=== PATIENT | male | born 1940 | race Caucasian/White ===

== ENCOUNTER → 2016-12-22 | Outpatient (CLI) | payer MEDICARE ==
[~2016-12-22] MED LIST: ACET65TA OR; AVAP150T OR; FISHCAP PO; GLUC500T3 OR; PRIL40CA OR; THERGRAN PO; VITAMIN D50000 UNT OR
--- NOTE | 2016-12-22 13:25 | REP ---
Urinary tract sonography: History: Hematuria after injury. Comparison is made with CT study from December 22, 2015. Findings: Scanning at the level of the urinary bladder shows smooth bladder hood. The prostate is enlarged measuring 5.7 x 4.3 x 5.6 cm. Renal cortical echogenicity pattern is normal and contours are smooth. No hydronephrosis is seen on either side. The right kidney measures 10.4 x 5.0 x 4.8 cm. Left renal dimensions are 11.0 x 4.5 x 5.3 cm. There is a dromedary hump configuration of the left kidney. No renal mass lesion. No renal or perirenal hematoma is appreciated. Impression: Enlarged prostate. Otherwise negative urinary tract sonography. Signed by Reid Diaz MD 12/22/2016 04:25 P
== END ==
LOC: M RAD 11:06
PROVIDERS: ATTEND Surgery
DX: R31.9 Hematuria, unspecified (principal)

== ENCOUNTER → 2017-07-24 | Outpatient (CLI) | payer MEDICARE ==
[2017-07-24 07:30] LABS: BASO % 0.5 % (0.0-1.0); EOS # 0.3 10^3/uL (0.0-0.50); EOS % 4.1 % (0.0-3.0); HEMATOCRIT 48.3 % (42.0-52.0); HEMOGLOBIN 15.9 g/dl (14.0-18.0); IMMATURE GRANULOCYTE % 0.5 % (0-0); LYMPH # 1.6 10^3/uL (1.5-4.5); LYMPH % 21.5 % (24.0-44.0); MEAN CORPUSCULAR HEMOGLOBIN 31.7 pg (27.0-33.0); MEAN CORPUSCULAR HGB CONC 32.9 g/dl (32.0-36.5); MEAN CORPUSCULAR VOLUME 96.2 fl (80.0-96.0); MONO # 0.9 10^3/uL (0.0-0.8); MONO % 12.4 % (0.0-5.0); NEUTROPHILS # 4.6 10^3/uL (1.8-7.7); PLATELET COUNT, AUTOMATED 134 10^3/uL (150-450); RED BLOOD COUNT 5.02 10^6/uL (4.30-6.10); RED CELL DISTRIBUTION WIDTH 13.2 % (11.5-14.5); WHITE BLOOD COUNT 7.5 10^3/uL (4.0-10.0)
[2017-07-24 07:52] LABS: ALBUMIN 3.7 GM/DL (3.2-5.2); ALBUMIN/GLOBULIN RATIO 0.95 (1.00-1.93); ALKALINE PHOSPHATASE 98 U/L (45-117); ALT/SGPT 23 U/L (12-78); ANION GAP 7 MEQ/L (8-16); AST/SGOT 27 U/L (7-37); BILIRUBIN,TOTAL 0.7 MG/DL (0.2-1.0); BLOOD UREA NITROGEN 29 MG/DL (7-18); CALCIUM LEVEL 8.2 MG/DL (8.8-10.2); CARBON DIOXIDE LEVEL 27 MEQ/L (21-32); CHLORIDE LEVEL 107 MEQ/L (98-107); CHOLESTEROL LEVEL 134 MG/DL (<200); CHOLESTEROL RISK RATIO 3.268 (<5); CREATININE FOR GFR 1.64 MG/DL (0.70-1.30); GLOMERULAR FILTRATION RATE 43.5 (>42); GLUCOSE, FASTING 97 MG/DL (83-110); HDL CHOLESTEROL 41 MG/DL (>40); NON-HDL-C 93 MG/DL; POTASSIUM SERUM 4.6 MEQ/L (3.5-5.1); SODIUM LEVEL 141 MEQ/L (136-145); TOTAL PROTEIN 7.6 GM/DL (6.4-8.2); TRIGLYCERIDES LEVEL 90 MG/DL (<150)
[2017-07-24 08:11] LABS: TOTAL 25(OH) VITAMIN D 41.3 NG/ML (30.0-100.0); VITAMIN B12 LEVEL 405 PG/ML (247-911)
== END ==
LOC: M LAB 06:17
DX: E55.9 Vitamin D deficiency, unspecified (principal); I10 Essential (primary) hypertension; E53.8 Deficiency of other specified B group vitamins
CPT/HCPCS: 82607

== ENCOUNTER → 2017-12-03 | Outpatient (CLI) | payer MEDICARE ==
[2017-12-03 07:32] LABS: ANION GAP 5 MEQ/L (8-16); BLOOD UREA NITROGEN 32 MG/DL (7-18); CALCIUM LEVEL 8.6 MG/DL (8.8-10.2); CARBON DIOXIDE LEVEL 28 MEQ/L (21-32); CHLORIDE LEVEL 111 MEQ/L (98-107); CREATININE FOR GFR 1.76 MG/DL (0.70-1.30); GLOMERULAR FILTRATION RATE 40.1 (>42); GLUCOSE, FASTING 100 MG/DL (70-100); POTASSIUM SERUM 4.6 MEQ/L (3.5-5.1); SODIUM LEVEL 144 MEQ/L (136-145)
== END ==
LOC: M LAB 06:10
DX: N18.9 Chronic kidney disease, unspecified (principal)
CPT/HCPCS: 80048

== ENCOUNTER → 2017-12-21 | Outpatient (REF) | payer MEDICARE ==
[2017-12-21 13:50] LABS: TOTAL PROTEIN,RANDOM URINE 17.2 MG/DL (0.0-12.0)
== END ==
LOC: M LAB REF 12:59
DX: N18.3 Chronic kidney disease, stage 3 (moderate) (principal)
CPT/HCPCS: 84156

== ENCOUNTER → 2017-12-27 | Outpatient (CLI) | payer MEDICARE | LOC: M RAD 06:59 | DX: I15.0 Renovascular hypertension (principal); N18.9 Chronic kidney disease, unspecified | CPT/HCPCS: 76775 ==

== ENCOUNTER → 2018-04-22 | Outpatient (REF) | payer MEDICARE ==
[2018-04-22 14:10] LABS: TOTAL PROTEIN,RANDOM URINE 17.5 MG/DL (0.0-12.0)
== END ==
LOC: M LAB REF 13:19
DX: N18.3 Chronic kidney disease, stage 3 (moderate) (principal)
CPT/HCPCS: 84156

== ENCOUNTER → 2018-12-10 | Outpatient (REF) | payer MEDICARE ==
[2018-12-10 20:37] LABS: BASO # 0.1 10^3/uL (0.0-0.2); BASO % 0.8 % (0.0-1.0); EOS # 0.2 10^3/uL (0.0-0.50); EOS % 2.6 % (0.0-3.0); HEMATOCRIT 50.3 % (42.0-52.0); HEMOGLOBIN 16.2 g/dl (13.5-17.5); LYMPH # 1.5 10^3/uL (1.5-4.5); LYMPH % 18.6 % (24.0-44.0); MEAN CORPUSCULAR HEMOGLOBIN 32.4 pg (27.0-33.0); MEAN CORPUSCULAR HGB CONC 32.2 g/dl (32.0-36.5); MEAN CORPUSCULAR VOLUME 100.6 fl (80.0-96.0); MONO # 0.9 10^3/uL (0.0-0.8); MONO % 11.1 % (0.0-5.0); NEUTROPHILS # 5.2 10^3/uL (1.8-7.7); NEUTROPHILS % 66.4 % (36.0-66.0); PLATELET COUNT, AUTOMATED 122 10^3/uL (150-450); WHITE BLOOD COUNT 7.8 10^3/uL (4.0-10.0)
== END ==
LOC: M LAB REF 17:20
PROVIDERS: ATTEND Internal Medicine Nephrology
DX: I12.9 Hypertensive chronic kidney disease with stage 1 through stage 4 chronic kidney disease, or unspecified chronic kidney disease (principal); N18.3 Chronic kidney disease, stage 3 (moderate)

== ENCOUNTER → 2018-12-12 | Outpatient (CLI) | payer MEDICARE ==
[2018-12-12 07:02] LABS: CHOLESTEROL RISK RATIO 3.304 (<5)
[2018-12-12 10:37] LABS: TOTAL 25(OH) VITAMIN D 40.3 NG/ML (30.0-100.0)
== END ==
LOC: M LAB 06:05
PROVIDERS: ATTEND Family Medicine
DX: E55.9 Vitamin D deficiency, unspecified (principal); I10 Essential (primary) hypertension; E53.8 Deficiency of other specified B group vitamins; Z79.899 Other long term (current) drug therapy

== ENCOUNTER → 2019-12-19 | Outpatient (CLI) | payer MEDICARE ==
[2019-12-19 10:20] LABS: HEMATOCRIT 49.7 % (42.0-52.0); HEMOGLOBIN 16.3 g/dl (13.5-17.5); MEAN CORPUSCULAR HEMOGLOBIN 31.8 pg (27.0-33.0); MEAN CORPUSCULAR HGB CONC 32.8 g/dl (32.0-36.5); MEAN CORPUSCULAR VOLUME 96.9 fl (80.0-96.0); PLATELET COUNT, AUTOMATED 116 10^3/uL (150-450); RED BLOOD COUNT 5.13 10^6/uL (4.30-6.10); WHITE BLOOD COUNT 8.7 10^3/uL (4.0-10.0)
[2019-12-19 10:54] LABS: ALBUMIN 3.8 GM/DL (3.2-5.2); BILIRUBIN,TOTAL 0.6 MG/DL (0.2-1.0); CALCIUM LEVEL 8.8 MG/DL (8.8-10.2); CHOLESTEROL RISK RATIO 3.191 (<5); CREATININE FOR GFR 1.94 MG/DL (0.70-1.30); GLOMERULAR FILTRATION RATE 35.5 (>35)
== END ==
LOC: M WUC 08:06
PROVIDERS: ATTEND Family Medicine
DX: E55.9 Vitamin D deficiency, unspecified (principal); I10 Essential (primary) hypertension; E53.8 Deficiency of other specified B group vitamins

== ENCOUNTER → 2021-08-18 | Outpatient (CLI) | payer MEDICARE | LOC: M WUC 13:54 | PROVIDERS: ATTEND Family Medicine | DX: M25.561 Pain in right knee (principal) ==

== ENCOUNTER → 2022-03-22 | Outpatient (CLI) | payer MEDICARE | LOC: M RAD 08:58 | PROVIDERS: ATTEND Nurse Practitioner Family | DX: N18.31 Chronic kidney disease, stage 3a (principal); I70.1 Atherosclerosis of renal artery ==

== ENCOUNTER 2023-02-21 07:14 | Day surgery (SDC) | payer MEDICARE ==
[~2023-02-21] VITALS: Ht 188 cm; Wt 81.9 kg
[~2023-02-21 07:14] MED LIST changes: +ASPI81TA26 PO; +BSS IRRIG/VANCO(10MG)/TOBRA(5MG)/EPINEPH(1:1000-0.5CC)500ML BAG-ORONLY IR ONE; +CEFUROXIME 1MG/0.1ML INTRACAMERAL INJ As Ordered ONE; +CYCLOPENTOLATE 1% OPHTH SOLN 2ML BTL OS SCH; +DORZ2SOL5; +ERGO500029 PO; +HYDR12.55 PO; +IRBE300T7 PO; +LIDOCAINE 1% SDV 5ML VIAL As Ordered ONE; +LIDOCAINE 3.5 % 1ML OPHTH TOPICAL GEL OU ONE; +METO1TAB32 PO; +OFLOXACIN 0.3 % (OCUFLOX) OPTH SOL 5ML OS ONE; +OMEG10002 PO; +PHENYLEPHRINE 10% OPHTH SOL 5ML OS PRN; +PHENYLEPHRINE 2.5% OPHTH SOL 2ML OS SCH; +PRAV40TA2 PO; +THERTAB52 PO; +TRAV2.5D; +TROPICAMIDE 1% OPHTH SOLN 15ML OS SCH; +VITA100093 PO
[2023-02-21] MEDS ORDERED: fentaNYL 100 MCG/2 ML INJECTION As Ordered ONE (09:25)
[2023-02-21] MEDS ORDERED: MIDAZOLAM INJ 2MG/2ML VIAL As Ordered ONE (09:58)
[2023-02-21 10:45] VITALS: BP 154/82; TEMP 97; O2SAT 96
== END 2023-02-21 10:50 | disposition home or self-care (01) ==
LOC: M SDC 07:14
PROVIDERS: ATTEND Ophthalmology
DX: H25.12 Age-related nuclear cataract, left eye (principal); H40.9 Unspecified glaucoma; I12.9 Hypertensive chronic kidney disease with stage 1 through stage 4 chronic kidney disease, or unspecified chronic kidney disease; N18.30 Chronic kidney disease, stage 3 unspecified; Z95.5 Presence of coronary angioplasty implant and graft; Z79.82 Long term (current) use of aspirin; Z79.899 Other long term (current) drug therapy
CPT/HCPCS: 66991; C1783; J0697; J2250; J3010; V2632

== ENCOUNTER 2023-03-21 08:22 | Day surgery (SDC) | payer MEDICARE ==
[~2023-03-21] VITALS: Ht 188 cm; Wt 80.9 kg
[~2023-03-21 08:22] MED LIST changes: -BSS IRRIG/VANCO(10MG)/TOBRA(5MG)/EPINEPH(1:1000-0.5CC)500ML BAG-ORONLY IR ONE; -CEFUROXIME 1MG/0.1ML INTRACAMERAL INJ As Ordered ONE; -CYCLOPENTOLATE 1% OPHTH SOLN 2ML BTL OS SCH; -LIDOCAINE 1% SDV 5ML VIAL As Ordered ONE; -LIDOCAINE 3.5 % 1ML OPHTH TOPICAL GEL OU ONE; -OFLOXACIN 0.3 % (OCUFLOX) OPTH SOL 5ML OS ONE; +PHENYLEPHRINE 10% OPHTH SOL 5ML OD PRN; -PHENYLEPHRINE 10% OPHTH SOL 5ML OS PRN; -PHENYLEPHRINE 2.5% OPHTH SOL 2ML OS SCH; -TROPICAMIDE 1% OPHTH SOLN 15ML OS SCH
[2023-03-21] MEDS: CYCLOPENTOLATE 1% OPHTH SOLN 2ML BTL OD SCH (09:36)
[2023-03-21] MEDS: PHENYLEPHRINE 2.5% OPHTH SOL 2ML OD SCH (09:36)
[2023-03-21] MEDS: TROPICAMIDE 1% OPHTH SOLN 15ML OD SCH (09:36)
[2023-03-21] MEDS: LIDOCAINE 3.5 % 1ML OPHTH TOPICAL GEL OU ONE (09:37)
[2023-03-21] MEDS: OFLOXACIN 0.3 % (OCUFLOX) OPTH SOL 5ML OD ONE (09:37)
[2023-03-21] MEDS ORDERED: MIDAZOLAM INJ 2MG/2ML VIAL As Ordered ONE (10:06)
[2023-03-21] MEDS ORDERED: fentaNYL 100 MCG/2 ML INJECTION As Ordered ONE (10:06)
[2023-03-21] MEDS ORDERED: LIDOCAINE 1% SDV 5ML VIAL As Ordered ONE (10:24)
[2023-03-21] MEDS: CEFUROXIME 1MG/0.1ML INTRACAMERAL INJ As Ordered ONE (10:41)
[2023-03-21] MEDS: LIDOCAINE 1% SDV 5ML VIAL As Ordered ONE (10:41)
[2023-03-21] MEDS: BSS IRRIG/VANCO(10MG)/TOBRA(5MG)/EPINEPH(1:1000-0.5CC)500ML BAG-ORONLY IR ONE (10:41)
[2023-03-21 10:57] VITALS: BP 192/91; TEMP 96.7; O2SAT 94
== END 2023-03-21 11:17 | disposition home or self-care (01) ==
LOC: M SDC 08:22
PROVIDERS: ATTEND Ophthalmology
DX: H25.11 Age-related nuclear cataract, right eye (principal); H40.9 Unspecified glaucoma; I11.9 Hypertensive heart disease without heart failure; E78.5 Hyperlipidemia, unspecified; R06.83 Snoring; Z95.5 Presence of coronary angioplasty implant and graft; Z79.82 Long term (current) use of aspirin; Z79.899 Other long term (current) drug therapy
CPT/HCPCS: 66991; C1783; J0697; J2250; J3010; V2632

== ENCOUNTER → 2023-12-17 | Outpatient (CLI) | payer MEDICARE ==
[~2023-12-17] MED LIST changes: +IRBE300T25 PO; -IRBE300T7 PO; -PHENYLEPHRINE 10% OPHTH SOL 5ML OD PRN
[2023-12-17 10:27] LABS: BASO # 0.1 10^3/uL (0.0-0.2); BASO % 0.8 % (0.0-1.0); EOS # 0.4 10^3/uL (0.0-0.5); HEMATOCRIT 39.2 % (42.0-52.0); HEMOGLOBIN 12.7 g/dl (13.5-17.5); LYMPH # 1.6 10^3/uL (1.5-5.0); LYMPH % 16.5 % (24.0-44.0); MEAN CORPUSCULAR HEMOGLOBIN 32.1 pg (27.0-33.0); MEAN CORPUSCULAR HGB CONC 32.4 g/dl (32.0-36.5); MONO # 1.3 10^3/uL (0.0-0.8); MONO % 13.5 % (2.0-8.0); NEUTROPHILS # 6.4 10^3/uL (1.5-8.5); NEUTROPHILS % 64.7 % (36.0-66.0); PLATELET COUNT, AUTOMATED 144 10^3/uL (150-450); RED BLOOD COUNT 3.96 10^6/uL (4.30-6.10); WHITE BLOOD COUNT 9.8 10^3/uL (4.0-10.0)
[2023-12-17 11:02] LABS: ALBUMIN 3.5 G/DL (3.2-5.2); BILIRUBIN,TOTAL 0.3 MG/DL (0.3-1.2); CALCIUM LEVEL 8.9 MG/DL (8.3-10.6); CREATININE FOR GFR 2.85 MG/DL (0.70-1.30); GLOMERULAR FILTRATION RATE 22.6 (>35); POTASSIUM SERUM 5.4 MMOL/L (3.5-5.1); TOTAL 25(OH) VITAMIN D 46.3 NG/ML (20.0-100.0)
== END ==
LOC: M WUC 09:01
PROVIDERS: ATTEND Family Medicine
DX: E55.9 Vitamin D deficiency, unspecified (principal); I10 Essential (primary) hypertension; E53.8 Deficiency of other specified B group vitamins

== ENCOUNTER 2023-12-21 10:41 | Observation (INO) | payer MEDICARE ==
[~2023-12-21] VITALS: Ht 188 cm; Wt 81.8 kg
[~2023-12-21 10:41] MED LIST changes: -DORZ2SOL5; +DORZ2SOL5 OU; -TRAV2.5D; +TRAV2.5D OU
[2023-12-21 11:46] LABS: BASO # 0.1 10^3/uL (0.0-0.2); BASO % 0.7 % (0.0-1.0); EOS # 0.2 10^3/uL (0.0-0.5); EOS % 1.8 % (0.0-3.0); HEMATOCRIT 39.5 % (42.0-52.0); HEMOGLOBIN 13.2 g/dl (13.5-17.5); LYMPH # 1.2 10^3/uL (1.5-5.0); LYMPH % 8.6 % (24.0-44.0); MEAN CORPUSCULAR HEMOGLOBIN 32.2 pg (27.0-33.0); MEAN CORPUSCULAR HGB CONC 33.4 g/dl (32.0-36.5); MEAN CORPUSCULAR VOLUME 96.3 fl (80.0-96.0); MONO # 1.6 10^3/uL (0.0-0.8); MONO % 12.1 % (2.0-8.0); NEUTROPHILS # 10.2 10^3/uL (1.5-8.5); NEUTROPHILS % 76.3 % (36.0-66.0); PLATELET COUNT, AUTOMATED 151 10^3/uL (150-450); WHITE BLOOD COUNT 13.4 10^3/uL (4.0-10.0)
[2023-12-21 12:10] LABS: ALBUMIN 3.8 G/DL (3.2-5.2); BILIRUBIN,DIRECT 0.2 MG/DL (<0.4); BILIRUBIN,TOTAL 0.5 MG/DL (0.3-1.2); CALCIUM LEVEL 9.2 MG/DL (8.3-10.6); CREATININE FOR GFR 2.77 MG/DL (0.70-1.30); GLOMERULAR FILTRATION RATE 23.3 (>35); POTASSIUM SERUM 5.2 MMOL/L (3.5-5.1); TOTAL PROTEIN 7.4 G/DL (5.7-8.2)
[2023-12-21] MEDS: ONDANSETRON 4MG 2ML VIAL IV ONE (15:27)
[2023-12-21] MEDS: MORPHINE 2 MG/ML 1ML VIAL IV ONE ×2 (15:27→17:46)
[2023-12-21] MEDS: cefTRIAXone SOD 1 GM in D5W MINI-BAG PLUS 50 ML IV ONE (16:20)
[2023-12-21] MEDS: NS 500 ML IV ONE (16:21)
[2023-12-21] MEDS ORDERED: ONDANSETRON 4MG 2ML VIAL IV PRN (17:35)
[2023-12-21] MEDS ORDERED: MEPERIDINE 25 MG/ML 1ML VIAL IV PRN (17:35)
[2023-12-21] MEDS ORDERED: fentaNYL 100 MCG/2 ML INJECTION IV PRN (17:35)
[2023-12-21] MEDS: NS 1,000 ML IV SCH (17:46)
[2023-12-21] MEDS ORDERED: NS 1,000 ML IV SCH (18:05)
[2023-12-21] MEDS ORDERED: propofoL 200 MG/20 ML VIAL As Ordered ONE (18:29)
[2023-12-21] MEDS ORDERED: LIDOCAINE 2% 100MG/5ML SDV (FOR ANES.) As Ordered ONE (18:30)
[2023-12-21] MEDS ORDERED: fentaNYL 100 MCG/2 ML INJECTION As Ordered ONE (18:30)
[2023-12-21] MEDS ORDERED: MIDAZOLAM INJ 2MG/2ML VIAL As Ordered ONE (18:30)
[2023-12-21] MEDS: ISOVUE-300 61% 100ML VIAL As Ordered ONE (18:33)
[2023-12-21] MEDS ORDERED: ePHEDrine SULFATE 25 MG/5 ML(5MG/ML) SYRINGE As Ordered ONE (19:14)
[2023-12-21 20:36] VITALS: BP 126/88; TEMP 97.7; O2SAT 94
[2023-12-21 21:05] VITALS: BP 126/88; TEMP 97.7; O2SAT 93
[2023-12-21 21:30] VITALS: BP 136/86; TEMP 97.7; O2SAT 93
[2023-12-21] MEDS: LR 1,000 ML IV SCH (22:01)
[2023-12-21 22:30] VITALS: BP 145/73; TEMP 97.5; O2SAT 93
[2023-12-21 23:30] VITALS: BP 149/75; TEMP 97.5; O2SAT 94
[2023-12-22] VITALS (9 sets, daily range): BP systolic 144–155; BP diastolic 71–83; TEMP 97.5–98.1; O2SAT 88–99
[2023-12-22 07:10] LABS: HEMATOCRIT 39.8 % (42.0-52.0); MEAN CORPUSCULAR HEMOGLOBIN 31.7 pg (27.0-33.0); MEAN CORPUSCULAR HGB CONC 32.7 g/dl (32.0-36.5); MEAN CORPUSCULAR VOLUME 97.1 fl (80.0-96.0); PLATELET COUNT, AUTOMATED 129 10^3/uL (150-450); WHITE BLOOD COUNT 10.8 10^3/uL (4.0-10.0)
[2023-12-22 07:32] LABS: CALCIUM LEVEL 8.2 MG/DL (8.3-10.6); CREATININE FOR GFR 2.62 MG/DL (0.70-1.30); GLOMERULAR FILTRATION RATE 24.9 (>35); POTASSIUM SERUM 5.9 MMOL/L (3.5-5.1)
[2023-12-22] MEDS: NS 0.45% 1,000 ML IV SCH (09:13)
[2023-12-22] MEDS: SOD POLYSTYRENE SULFONATE SUSP 15GM 60ML UD PO ONE (10:17)
[2023-12-22] MEDS ORDERED: AMLO1TAB24 PO (10:25)
[2023-12-22] MEDS ORDERED: HOME MED LIST COMPLETE! XX SCH (10:30)
[2023-12-22] MEDS: cefTRIAXone SOD 1 GM in D5W MINI-BAG PLUS 50 ML IV SCH (13:30)
[2023-12-22 17:59] LABS: CALCIUM LEVEL 8.2 MG/DL (8.3-10.6); CREATININE FOR GFR 2.69 MG/DL (0.70-1.30); GLOMERULAR FILTRATION RATE 24.1 (>35); POTASSIUM SERUM 5.5 MMOL/L (3.5-5.1)
[2023-12-23 03:51] LABS: HEMATOCRIT 36.9 % (42.0-52.0); HEMOGLOBIN 12.1 g/dl (13.5-17.5); MEAN CORPUSCULAR HEMOGLOBIN 31.7 pg (27.0-33.0); MEAN CORPUSCULAR HGB CONC 32.8 g/dl (32.0-36.5); MEAN CORPUSCULAR VOLUME 96.6 fl (80.0-96.0); PLATELET COUNT, AUTOMATED 122 10^3/uL (150-450); RED BLOOD COUNT 3.82 10^6/uL (4.30-6.10); WHITE BLOOD COUNT 13.7 10^3/uL (4.0-10.0)
[2023-12-23 04:00] VITALS: BP 156/79; TEMP 97.9; O2SAT 92
[2023-12-23 04:15] LABS: CALCIUM LEVEL 7.8 MG/DL (8.3-10.6); CREATININE FOR GFR 2.59 MG/DL (0.70-1.30); GLOMERULAR FILTRATION RATE 25.2 (>35); POTASSIUM SERUM 4.9 MMOL/L (3.5-5.1)
[2023-12-23] MEDS: NS 500 ML IV ONE (04:24)
[2023-12-23 08:00] VITALS: BP 174/86; TEMP 98.1; O2SAT 95
[2023-12-23 08:11] LABS: HEMATOCRIT 35.6 % (42.0-52.0); HEMOGLOBIN 11.5 g/dl (13.5-17.5); MEAN CORPUSCULAR HEMOGLOBIN 31.4 pg (27.0-33.0); MEAN CORPUSCULAR HGB CONC 32.3 g/dl (32.0-36.5); MEAN CORPUSCULAR VOLUME 97.3 fl (80.0-96.0); PLATELET COUNT, AUTOMATED 114 10^3/uL (150-450); RED BLOOD COUNT 3.66 10^6/uL (4.30-6.10); WHITE BLOOD COUNT 11.9 10^3/uL (4.0-10.0)
[2023-12-23 08:41] LABS: CALCIUM LEVEL 7.2 MG/DL (8.3-10.6); CREATININE FOR GFR 2.27 MG/DL (0.70-1.30); GLOMERULAR FILTRATION RATE 29.4 (>35); POTASSIUM SERUM 4.4 MMOL/L (3.5-5.1)
[2023-12-23] MEDS: MIRALAX *UNIT DOSE* 17GM PACKET PO SCH (09:00)
[2023-12-23] MEDS: SENOKOT S TAB PO SCH (10:47)
[2023-12-23] MEDS: amLODIPine 5 MG TAB PO SCH (10:48)
[2023-12-23 12:00] VITALS: BP 170/91; TEMP 97.7; O2SAT 96
[2023-12-23 13:00] VITALS: BP 172/100
[2023-12-23 13:32] VITALS: BP 176/101
[2023-12-23] MEDS: METOPROLOL TART 25 MG TABLET PO ONE (13:32)
[2023-12-23 14:55] VITALS: BP 152/91
[2023-12-23] MEDS ORDERED: METO1TAB87 PO (16:06)
[2023-12-23] MEDS: METOPROLOL TART 25 MG TABLET PO SCH (17:14)
== END 2023-12-23 17:10 | disposition home or self-care (01) ==
LOC: M ED 10:41 → M ED INP 10:42 → M MS5PR 20:36
PROVIDERS: ADMIT Family Medicine; ATTEND Family Medicine
DX: N20.1 Calculus of ureter (principal); N13.39 Other hydronephrosis; N18.32 Chronic kidney disease, stage 3b; N17.9 Acute kidney failure, unspecified; I12.9 Hypertensive chronic kidney disease with stage 1 through stage 4 chronic kidney disease, or unspecified chronic kidney disease; I25.10 Atherosclerotic heart disease of native coronary artery without angina pectoris; Z95.5 Presence of coronary angioplasty implant and graft; I25.2 Old myocardial infarction; E78.5 Hyperlipidemia, unspecified; N40.0 Benign prostatic hyperplasia without lower urinary tract symptoms; K59.00 Constipation, unspecified; Z98.890 Other specified postprocedural states; Z98.41 Cataract extraction status, right eye; Z98.42 Cataract extraction status, left eye; Z79.899 Other long term (current) drug therapy; Z79.82 Long term (current) use of aspirin
CPT/HCPCS: 36415; 52332; 74176; 74430; 80048; 80076; 81001; 83690; 83735; 85025; 85027; 87086; 87635; 93005; 96361; 96365; 96366; 96375; 96376; 99284; C1769; C2617; G0378; J0696; J1100; J2250; J2405; J3010; Q9967

== ENCOUNTER → 2024-01-18 | Outpatient (CLI) | payer MEDICARE ==
[~2024-01-18] MED LIST changes: +AMLO1TAB24 PO; +AMLO2.5T3 PO; +METO1TAB87 PO; +METO25TA4 PO; +PRAV80TA2 PO
== END ==
LOC: M WUC 08:45
PROVIDERS: ATTEND Physician Assistant
DX: Z01.818 Encounter for other preprocedural examination (principal)

== ENCOUNTER → 2024-01-18 | Outpatient (CLI) | payer MEDICARE ==
[2024-01-18 13:04] LABS: HEMATOCRIT 41.3 % (42.0-52.0); HEMOGLOBIN 13.1 g/dl (13.5-17.5); MEAN CORPUSCULAR HEMOGLOBIN 30.8 pg (27.0-33.0); MEAN CORPUSCULAR HGB CONC 31.7 g/dl (32.0-36.5); MEAN CORPUSCULAR VOLUME 96.9 fl (80.0-96.0); PLATELET COUNT, AUTOMATED 153 10^3/uL (150-450); RED BLOOD COUNT 4.26 10^6/uL (4.30-6.10); WHITE BLOOD COUNT 9.5 10^3/uL (4.0-10.0)
[2024-01-18 13:18] LABS: CALCIUM LEVEL 8.7 MG/DL (8.3-10.6); CREATININE FOR GFR 2.47 MG/DL (0.70-1.30); GLOMERULAR FILTRATION RATE 26.6 (>35); POTASSIUM SERUM 5.1 MMOL/L (3.5-5.1)
== END ==
LOC: M WUC 09:34
PROVIDERS: ATTEND Physician Assistant
DX: Z01.818 Encounter for other preprocedural examination (principal)

== ENCOUNTER → 2024-01-21 | Outpatient (CLI) | payer MEDICARE ==
[2024-01-21 11:12] LABS: APPEARANCE, URINE HAZY (CLEAR); BACTERIA, URINE AUTO NEGATIVE (NEGATIVE); BILIRUBIN, URINE AUTO NEGATIVE (NEGATIVE); BLOOD, URINE BLOOD 2+ (NEGATIVE); COLOR, URINE YELLOW (YELLOW); GLUCOSE, URINE (UA) AUTO NEGATIVE (NEGATIVE); KETONE, URINE AUTO NEGATIVE (NEGATIVE); LEUKOCYTE ESTERASE, URINE AUTO 2+ (NEGATIVE); NITRITE, URINE AUTO NEGATIVE (NEGATIVE); PROTEIN, URINE AUTO 2+ mg/dL (NEGATIVE); RBC, URINE AUTO 17 /HPF (0-3); SPECIFIC GRAVITY URINE AUTO 1.009 (1.002-1.035); SQUAMOUS EPITHELIAL CELL UR AU 0 /HPF (0-6); UROBILINOGEN, URINE AUTO 0.2 mg/dL (0.0-2.0); WBC, URINE AUTO 9 /HPF (0-3)
== END ==
LOC: M WUC 08:30
PROVIDERS: ATTEND Physician Assistant
DX: Z01.818 Encounter for other preprocedural examination (principal); Z79.899 Other long term (current) drug therapy

== ENCOUNTER 2024-01-30 06:50 | Day surgery (SDC) | payer MEDICARE ==
[~2024-01-30] VITALS: Ht 188 cm; Wt 79.5 kg
[2024-01-30] MEDS ORDERED: fentaNYL 100 MCG/2 ML INJECTION As Ordered ONE (07:47)
[2024-01-30] MEDS ORDERED: ONDANSETRON 4MG 2ML VIAL As Ordered ONE (07:47)
[2024-01-30] MEDS ORDERED: ACETAMINOPHEN 1000MG 100ML IV BAG As Ordered ONE (07:48)
[2024-01-30] MEDS ORDERED: propofoL 200 MG/20 ML VIAL As Ordered ONE (07:49)
[2024-01-30] MEDS ORDERED: LIDOCAINE 2% 100MG/5ML SDV (FOR ANES.) As Ordered ONE (07:51)
[2024-01-30] MEDS: ceFAZolin SOD 2 GM in IV 1 EA IV ONE (08:33)
[2024-01-30] MEDS: ISOVUE-300 61% 100ML VIAL As Ordered ONE (08:55)
[2024-01-30 09:57] VITALS: BP 157/74; TEMP 98.1; O2SAT 95
== END 2024-01-30 10:25 | disposition home or self-care (01) ==
LOC: M SDC 06:50
PROVIDERS: ATTEND Urology
DX: N21.0 Calculus in bladder (principal); N13.30 Unspecified hydronephrosis; I12.9 Hypertensive chronic kidney disease with stage 1 through stage 4 chronic kidney disease, or unspecified chronic kidney disease; N18.30 Chronic kidney disease, stage 3 unspecified; I25.2 Old myocardial infarction; E78.00 Pure hypercholesterolemia, unspecified; Z79.82 Long term (current) use of aspirin; Z79.899 Other long term (current) drug therapy; Z95.5 Presence of coronary angioplasty implant and graft; Z87.19 Personal history of other diseases of the digestive system
CPT/HCPCS: 52310; 76000; 82365; C1769; J0131; J0690; J1100; J2405; J3010; Q9967

== ENCOUNTER 2024-05-29 02:41 | Inpatient (IN) | payer MEDICARE ==
[2024-05-29] VITALS (25 sets, daily range): BP systolic 120–161; BP diastolic 58–82; TEMP 98.2–99.2; O2SAT 91–97
[~2024-05-29] VITALS: Ht 188 cm; Wt 80.0 kg
[2024-05-29] MEDS: IPRATROPIUM 0.5MG/ALBUTEROL 2.5MG INH SOL UD 3ML (DUONEB) NEB PRN (03:01)
[2024-05-29] MEDS: methylPREDNISolone 125MG 2ML VIAL IV ONE (03:16)
[2024-05-29 03:18] LABS: BASO # 0.1 10^3/uL (0.0-0.2); BASO % 0.5 % (0.0-1.0); EOS # 0.3 10^3/uL (0.0-0.5); EOS % 2.8 % (0.0-3.0); HEMATOCRIT 41.2 % (42.0-52.0); HEMOGLOBIN 13.2 g/dl (13.5-17.5); LYMPH # 0.9 10^3/uL (1.5-5.0); LYMPH % 7.7 % (24.0-44.0); MEAN CORPUSCULAR HEMOGLOBIN 28.8 pg (27.0-33.0); MONO # 0.5 10^3/uL (0.0-0.8); MONO % 3.9 % (2.0-8.0); NEUTROPHILS % 84.8 % (36.0-66.0); PLATELET COUNT, AUTOMATED 177 10^3/uL (150-450); RED BLOOD COUNT 4.58 10^6/uL (4.30-6.10); WHITE BLOOD COUNT 11.8 10^3/uL (4.0-10.0)
[2024-05-29] MEDS: NS 1,000 ML in IV 1 EA IV STA (03:19)
[2024-05-29 03:29] LABS: VENOUS BASE EXCESS -5.4 (-2.0-2.0); VENOUS O2 SATURATION 69.1 % (60.0-80.0); VENOUS PARTIAL PRESSURE CO2 57.3 mmHg (38.0-50.0); VENOUS PARTIAL PRESSURE O2 41.4 mmHg (30.0-50.0); VENOUS PH 7.222 UNITS (7.330-7.430); VENOUS STANDARD HCO3 19.4 MMOL/L; VENOUS TOTAL CO2 24.8 MMOL/L (24.0-28.0)
[2024-05-29 03:29] LABS: INR 1.01; PARTIAL THROMBOPLASTIN TIME 29.5 SECONDS (24.8-34.2); PROTHROMBIN TIME 13.6 SECONDS (12.5-14.5)
[2024-05-29] MEDS: cefTRIAXone SOD 1 GM in DEXTROSE 5% (D5W) ADV/MINI-BAG 50 ML IV ONE (03:32)
[2024-05-29] MEDS: ENOXAPARIN 100MG/1ML SYRINGE (J1650 PER 10MG) SC ONE (03:35)
[2024-05-29 03:40] LABS: C REACTIVE PROTEIN QUANTITATIV < 0.40 MG/DL (<1.0)
[2024-05-29 03:41] LABS: AMYLASE 110 U/L (30-118)
[2024-05-29 03:43] LABS: ALBUMIN 3.7 G/DL (3.2-5.2); BILIRUBIN,DIRECT 0.1 MG/DL (<0.4); BILIRUBIN,TOTAL 0.4 MG/DL (0.3-1.2); CALCIUM LEVEL 8.7 MG/DL (8.3-10.6); CK-MB VALUE MASS 2.7 NG/ML (<3.6); CREATININE FOR GFR 2.73 MG/DL (0.70-1.30); GLOMERULAR FILTRATION RATE 23.7 (>35); MB/CK RELATIVE INDEX 1.12 (< OR =4); POTASSIUM SERUM 4.2 MMOL/L (3.5-5.1); TOTAL PROTEIN 7.9 G/DL (5.7-8.2)
[2024-05-29 03:49] LABS: PROCALCITONIN 0.16 ng/ml
[2024-05-29] MEDS: AZITHROMYCIN INJ 500 MG, VIAL MATE ADAPTER 1 EACH in NS 250 ML IV ONE (04:21)
[2024-05-29 05:02] LABS: CK-MB VALUE MASS 2.1 NG/ML (<3.6)
[2024-05-29 05:03] LABS: MB/CK RELATIVE INDEX 1.05 (< OR =4)
[2024-05-29] MEDS ORDERED: ACETAMINOPHEN 325 MG TAB PO PRN (05:10)
[2024-05-29] MEDS ORDERED: MOM 30ML SUSPENSION UDC PO PRN (05:10)
[2024-05-29] MEDS ORDERED: ALBUTEROL SULFATE 2.5MG/0.5ML INH NEB SOLN INH PRN (05:10)
[2024-05-29 05:36] LABS: ABG BASE EXCESS -3.9 (-2.0-2.0); ABG HCO3 20.2 MMOL/L (22.0-26.0); ABG O2 SATURATION 91.5 % (95.0-99.0); ABG PARTIAL PRESSURE CO2 33.8 mmHg (35.0-45.0); ABG PARTIAL PRESSURE O2 62.2 mmHg (75.0-100.0); ABG STANDARD HCO3 21.1 MMOL/L. (22.0-26.0); ABG TOTAL CO2 21.2 MMOL/L (23.0-31.0); ABG pH (ARTERIAL) 7.394 UNITS (7.350-7.450)
[2024-05-29 07:24] LABS: HEMATOCRIT 36.7 % (42.0-52.0); MEAN CORPUSCULAR HEMOGLOBIN 28.9 pg (27.0-33.0); MEAN CORPUSCULAR HGB CONC 32.7 g/dl (32.0-36.5); MEAN CORPUSCULAR VOLUME 88.4 fl (80.0-96.0); PLATELET COUNT, AUTOMATED 131 10^3/uL (150-450); RED BLOOD COUNT 4.15 10^6/uL (4.30-6.10); WHITE BLOOD COUNT 16.3 10^3/uL (4.0-10.0)
[2024-05-29] MEDS ORDERED: MED REC IN PROGRESS XX SCH (07:25)
[2024-05-29 07:52] LABS: CALCIUM LEVEL 8.3 MG/DL (8.3-10.6); CREATININE FOR GFR 2.68 MG/DL (0.70-1.30); GLOMERULAR FILTRATION RATE 24.2 (>35); POTASSIUM SERUM 3.6 MMOL/L (3.5-5.1)
[2024-05-29] MEDS ORDERED: HOME MED LIST COMPLETE! XX SCH (08:00)
[2024-05-29 08:05] LABS: ATYPICAL LYMPH 1 % (0-5); LYMPHOCYTES 2 % (16-44); METAMYELOCYTES 1 % (0-0); MONOCYTES 4 % (0-5); NEUTROPHILS 64 % (28-66)
[2024-05-29 08:07] LABS: PLATELET ESTIMATE NORMAL (NORMAL)
[2024-05-29] MEDS: IPRATROPIUM 0.5MG/ALBUTEROL 2.5MG INH SOL UD 3ML (DUONEB) INH SCH (08:51)
[2024-05-29] MEDS ORDERED: hydroCHLOROthiazide 12.5 MG CAPSULE PO SCH (09:00)
[2024-05-29] MEDS: COSOPT OCUMETER PLUS 10ML (DORZOLAMIDE/TIMOLOL) OU SCH (09:00)
[2024-05-29 09:10] LABS: C REACTIVE PROTEIN QUANTITATIV 0.4 MG/DL (<1.0)
[2024-05-29] MEDS: guaiFENesin ER TABLET 600 MG TAB PO SCH (10:13)
[2024-05-29] MEDS: MULTIVITAMINS/MINERALS THERAP 1 TAB PO SCH (10:13)
[2024-05-29] MEDS: ASPIRIN 81MG ENTERIC TABLET PO SCH (10:13)
[2024-05-29] MEDS: VITAMIN D 1,000 INTERNATIONAL UNITS TABLET PO SCH (10:13)
[2024-05-29] MEDS: ENOXAPARIN 30MG/0.3ML SYRINGE (J1650 PER 10MG) SC SCH (10:14)
[2024-05-29] MEDS ORDERED: E-Z-PAQUE 96% w/w SUSP 176GM BTL As Ordered ONE (14:14)
[2024-05-29] MEDS ORDERED: VARIBAR NECTAR 40% w/v 240ML SUSP BTL As Ordered ONE (14:14)
[2024-05-29] MEDS ORDERED: VARIBAR PUDDING 40% w/v 230ML TUBE As Ordered ONE (14:14)
[2024-05-29] MEDS ORDERED: BARIUM SULFATE 700 MG TABLET (E-Z-DISK) As Ordered ONE (14:15)
[2024-05-29 15:32] LABS: APPEARANCE, URINE HAZY (CLEAR); BACTERIA, URINE AUTO NEGATIVE (NEGATIVE); BILIRUBIN, URINE AUTO NEGATIVE (NEGATIVE); BLOOD, URINE BLOOD NEGATIVE (NEGATIVE); COLOR, URINE YELLOW (YELLOW); GLUCOSE, URINE (UA) AUTO 1+ mg/dL (NEGATIVE); KETONE, URINE AUTO NEGATIVE (NEGATIVE); LEUKOCYTE ESTERASE, URINE AUTO NEGATIVE (NEGATIVE); MUCUS, URINE SMALL (NEGATIVE); NITRITE, URINE AUTO NEGATIVE (NEGATIVE); PROTEIN, URINE AUTO 2+ mg/dL (NEGATIVE); RBC, URINE AUTO 2 /HPF (0-3); SPECIFIC GRAVITY URINE AUTO 1.016 (1.002-1.035); SQUAMOUS EPITHELIAL CELL UR AU 0 /HPF (0-6); UROBILINOGEN, URINE AUTO 0.2 mg/dL (0.0-2.0); WBC, URINE AUTO 1 /HPF (0-3)
[2024-05-29] MEDS ORDERED: methylPREDNISolone 125MG 2ML VIAL IV SCH (17:00)
[2024-05-29] MEDS: methylPREDNISolone 40MG 1ML VIAL IV SCH (18:06)
[2024-05-29] MEDS: PRAVASTATIN 20 MG TAB PO SCH (20:23)
[2024-05-29] MEDS: LATANOPROST 0.005% OPHTH SOLN 2.5 ML OU SCH (20:23)
[2024-05-29] MEDS ORDERED: guaiFENesin SYRUP 200MG 10ML UDC PO SCH (21:00)
[2024-05-29] MEDS ORDERED: ENTER DRUG NAME HERE (PATIENT'S OWN MED) OU SCH (21:00)
[2024-05-29] MEDS: guaiFENesin SYRUP 200MG 10ML UDC PO SCH (21:34)
[2024-05-30] VITALS (58 sets, daily range): BP systolic 128–150; BP diastolic 61–75; TEMP 97.5–98.4; O2SAT 85–99
[2024-05-30] MEDS: AZITHROMYCIN 250MG TABLET PO SCH (04:50)
[2024-05-30] MEDS: cefTRIAXone SOD 1 GM in DEXTROSE 5% (D5W) ADV/MINI-BAG 50 ML IV SCH (04:50)
[2024-05-30 06:48] LABS: BASO % 0.1 % (0.0-1.0); HEMATOCRIT 34.3 % (42.0-52.0); HEMOGLOBIN 11.2 g/dl (13.5-17.5); LYMPH # 0.9 10^3/uL (1.5-5.0); LYMPH % 3.8 % (24.0-44.0); MEAN CORPUSCULAR HEMOGLOBIN 28.8 pg (27.0-33.0); MEAN CORPUSCULAR HGB CONC 32.7 g/dl (32.0-36.5); MEAN CORPUSCULAR VOLUME 88.2 fl (80.0-96.0); MONO # 1.3 10^3/uL (0.0-0.8); MONO % 5.5 % (2.0-8.0); NEUTROPHILS # 21.3 10^3/uL (1.5-8.5); PLATELET COUNT, AUTOMATED 122 10^3/uL (150-450); RED BLOOD COUNT 3.89 10^6/uL (4.30-6.10); WHITE BLOOD COUNT 23.7 10^3/uL (4.0-10.0)
[2024-05-30 07:02] LABS: C REACTIVE PROTEIN QUANTITATIV 9.9 MG/DL (<1.0)
[2024-05-30 07:03] LABS: CALCIUM LEVEL 8.4 MG/DL (8.3-10.6); CREATININE FOR GFR 2.71 MG/DL (0.70-1.30); GLOMERULAR FILTRATION RATE 23.9 (>35); MAGNESIUM LEVEL 2.2 MG/DL (1.8-2.4); POTASSIUM SERUM 4.2 MMOL/L (3.5-5.1)
[2024-05-31] VITALS (20 sets, daily range): BP systolic 155–172; BP diastolic 74–96; TEMP 98.1–98.6; O2SAT 89–95
[2024-05-31 06:16] LABS: BASO % 0.1 % (0.0-1.0); EOS # 0.1 10^3/uL (0.0-0.5); EOS % 0.3 % (0.0-3.0); HEMATOCRIT 35.3 % (42.0-52.0); HEMOGLOBIN 11.3 g/dl (13.5-17.5); LYMPH # 1.6 10^3/uL (1.5-5.0); LYMPH % 7.4 % (24.0-44.0); MEAN CORPUSCULAR HEMOGLOBIN 28.3 pg (27.0-33.0); MEAN CORPUSCULAR VOLUME 88.3 fl (80.0-96.0); MONO # 1.7 10^3/uL (0.0-0.8); NEUTROPHILS # 17.9 10^3/uL (1.5-8.5); NEUTROPHILS % 83.3 % (36.0-66.0); PLATELET COUNT, AUTOMATED 154 10^3/uL (150-450); WHITE BLOOD COUNT 21.5 10^3/uL (4.0-10.0)
[2024-05-31 06:38] LABS: C REACTIVE PROTEIN QUANTITATIV 5.2 MG/DL (<1.0)
[2024-05-31 06:39] LABS: CALCIUM LEVEL 8.6 MG/DL (8.3-10.6); CREATININE FOR GFR 2.68 MG/DL (0.70-1.30); GLOMERULAR FILTRATION RATE 24.2 (>35); MAGNESIUM LEVEL 2.2 MG/DL (1.8-2.4); POTASSIUM SERUM 3.9 MMOL/L (3.5-5.1)
[2024-05-31] MEDS: predniSONE 10MG TAB PO SCH (08:10)
[2024-05-31] MEDS: CEFDINIR 300 MG CAP (OMNICEF) PO SCH (10:37)
[2024-06-01] VITALS (11 sets, daily range): BP systolic 138–172; BP diastolic 79–88; TEMP 97.7–97.9; O2SAT 87–96
[2024-06-01 06:50] LABS: BASO % 0.1 % (0.0-1.0); EOS # 0.1 10^3/uL (0.0-0.5); EOS % 0.4 % (0.0-3.0); HEMATOCRIT 33.1 % (42.0-52.0); HEMOGLOBIN 10.9 g/dl (13.5-17.5); LYMPH # 1.8 10^3/uL (1.5-5.0); MEAN CORPUSCULAR HEMOGLOBIN 28.8 pg (27.0-33.0); MEAN CORPUSCULAR HGB CONC 32.9 g/dl (32.0-36.5); MEAN CORPUSCULAR VOLUME 87.6 fl (80.0-96.0); MONO # 1.5 10^3/uL (0.0-0.8); MONO % 8.2 % (2.0-8.0); NEUTROPHILS # 14.7 10^3/uL (1.5-8.5); PLATELET COUNT, AUTOMATED 149 10^3/uL (150-450); RED BLOOD COUNT 3.78 10^6/uL (4.30-6.10); WHITE BLOOD COUNT 18.4 10^3/uL (4.0-10.0)
[2024-06-01 07:16] LABS: C REACTIVE PROTEIN QUANTITATIV 2.6 MG/DL (<1.0)
[2024-06-01 07:18] LABS: CALCIUM LEVEL 8.4 MG/DL (8.3-10.6); CREATININE FOR GFR 2.31 MG/DL (0.70-1.30); GLOMERULAR FILTRATION RATE 28.8 (>35); MAGNESIUM LEVEL 2.1 MG/DL (1.8-2.4); POTASSIUM SERUM 3.7 MMOL/L (3.5-5.1)
[2024-06-01] MEDS: FUROSEMIDE 40MG/4ML VIAL IV ONE (10:16)
[2024-06-02 04:09] VITALS: BP 150/78; TEMP 98.1; O2SAT 91
[2024-06-02 06:37] LABS: BASO % 0.1 % (0.0-1.0); EOS # 0.1 10^3/uL (0.0-0.5); EOS % 0.5 % (0.0-3.0); HEMATOCRIT 34.4 % (42.0-52.0); HEMOGLOBIN 11.1 g/dl (13.5-17.5); LYMPH # 1.7 10^3/uL (1.5-5.0); LYMPH % 11.4 % (24.0-44.0); MEAN CORPUSCULAR HEMOGLOBIN 28.5 pg (27.0-33.0); MEAN CORPUSCULAR HGB CONC 32.3 g/dl (32.0-36.5); MEAN CORPUSCULAR VOLUME 88.2 fl (80.0-96.0); MONO # 1.6 10^3/uL (0.0-0.8); MONO % 10.6 % (2.0-8.0); NEUTROPHILS # 11.5 10^3/uL (1.5-8.5); NEUTROPHILS % 76.3 % (36.0-66.0); PLATELET COUNT, AUTOMATED 165 10^3/uL (150-450); WHITE BLOOD COUNT 15.1 10^3/uL (4.0-10.0)
[2024-06-02 07:00] VITALS: BP 149/80; TEMP 98.1; O2SAT 90
[2024-06-02 07:05] LABS: C REACTIVE PROTEIN QUANTITATIV 1.4 MG/DL (<1.0)
[2024-06-02 07:06] LABS: CALCIUM LEVEL 8.5 MG/DL (8.3-10.6); CREATININE FOR GFR 2.41 MG/DL (0.70-1.30); GLOMERULAR FILTRATION RATE 27.4 (>35); POTASSIUM SERUM 3.8 MMOL/L (3.5-5.1)
[2024-06-02 08:37] VITALS: BP 149/80
[2024-06-02] MEDS ORDERED: PRED10TA2 PO (11:24)
[2024-06-02] MEDS ORDERED: CEFD300CAP PO (11:24)
[2024-06-02] MEDS ORDERED: TREL1AER PO (11:26)
[2024-06-02 12:00] VITALS: BP 146/75; TEMP 97.5; O2SAT 90
[2024-06-03 23:53] LABS: URINE STREP PNEUMONIAE ANTIGEN NOT DETECTED (NOT DETECT)
[2024-06-03 23:53] LABS: MYCOPLASMA PNEUMONIAE IGG 3.66 (<=0.90)
== END 2024-06-02 14:00 | disposition home health service (06) | DRG 189 ==
LOC: M ED 02:41 → M ED INP 05:07 → M PCU 09:18 → M MS5PR 05-31 17:36
PROVIDERS: ADMIT Internal Medicine; ATTEND Internal Medicine
PROC: B246ZZZ Ultrasonography of Right and Left Heart (ICD-10-PCS; principal; 2024-05-29)
DX: J96.01 Acute respiratory failure with hypoxia (principal); J69.0 Pneumonitis due to inhalation of food and vomit; J44.0 Chronic obstructive pulmonary disease with (acute) lower respiratory infection; J44.1 Chronic obstructive pulmonary disease with (acute) exacerbation; N18.32 Chronic kidney disease, stage 3b; I12.9 Hypertensive chronic kidney disease with stage 1 through stage 4 chronic kidney disease, or unspecified chronic kidney disease; I25.10 Atherosclerotic heart disease of native coronary artery without angina pectoris; R13.10 Dysphagia, unspecified; H40.9 Unspecified glaucoma; E78.5 Hyperlipidemia, unspecified; Z66 Do not resuscitate; I27.20 Pulmonary hypertension, unspecified; I36.1 Nonrheumatic tricuspid (valve) insufficiency; K22.5 Diverticulum of esophagus, acquired; Z11.52 Encounter for screening for COVID-19; Z95.5 Presence of coronary angioplasty implant and graft; Z98.49 Cataract extraction status, unspecified eye; Z87.891 Personal history of nicotine dependence; Z79.82 Long term (current) use of aspirin; Z79.899 Other long term (current) drug therapy

== ENCOUNTER → 2024-07-22 | Outpatient (CLI) | payer MEDICARE ==
[~2024-07-22] MED LIST changes: +CEFD300CAP PO; +PRED10TA2 PO; +TREL1AER PO
== END ==
LOC: M PLAIMG 09:32
PROVIDERS: ATTEND Internal Medicine Pulmonary Disease
DX: R91.8 Other nonspecific abnormal finding of lung field (principal); J06.9 Acute upper respiratory infection, unspecified

== ENCOUNTER → 2024-11-04 | Outpatient (REF) | payer MEDICARE ==
[2024-11-04 19:11] LABS: IRON (FE) 22 UG/DL (65-175); PERCENT SATURATION 5.7 % (19.7-50.0); TOTAL IRON BINDING CAPACITY 385 UG/DL (250-425)
[2024-11-04 19:12] LABS: FERRITIN 17.2 NG/ML (10.5-307.3)
[2024-11-04 19:13] LABS: VITAMIN B12 LEVEL 738 PG/ML (211-911)
[2024-11-04 19:15] LABS: FOLATE > 24.0 NG/ML (>5.4)
== END ==
LOC: M LAB REF 17:05
PROVIDERS: ATTEND Nurse Practitioner Family
DX: D50.9 Iron deficiency anemia, unspecified (principal)

== ENCOUNTER 2024-11-25 13:34 | Inpatient (IN) | payer MEDICARE ==
[~2024-11-25] VITALS: Ht 188 cm; Wt 79.3 kg
[2024-11-25] MEDS ORDERED: IRON65TA2 PO (13:47)
[2024-11-25] MEDS ORDERED: CALCTAB89 PO (13:49)
[2024-11-25] MEDS: methylPREDNISolone 125MG 2ML VIAL IV ONE (14:23)
[2024-11-25] MEDS: NS 500 ML IV ONE (14:23)
[2024-11-25] MEDS: ALBUTEROL SULFATE 2.5MG/0.5ML INH CONCENTRATE NEB SOLN INH ONE (14:25)
[2024-11-25] MEDS: IPRATROPIUM 0.5MG/ALBUTEROL 2.5MG INH SOL UD 3ML NEB ONE (14:25)
[2024-11-25 14:33] LABS: VENOUS BASE EXCESS -2.1 (-2.0-2.0); VENOUS O2 SATURATION 59.2 % (60.0-80.0); VENOUS PARTIAL PRESSURE CO2 46.3 mmHg (38.0-50.0); VENOUS PARTIAL PRESSURE O2 33.1 mmHg (30.0-50.0); VENOUS PH 7.333 UNITS (7.330-7.430); VENOUS STANDARD HCO3 21.9 MMOL/L; VENOUS TOTAL CO2 25.4 MMOL/L (24.0-28.0)
[2024-11-25 14:38] LABS: ABG BASE EXCESS -1.5 (-2.0-2.0); ABG HCO3 22.8 MMOL/L (22.0-26.0); ABG O2 SATURATION 90.4 % (95.0-99.0); ABG PARTIAL PRESSURE CO2 36.9 mmHg (35.0-45.0); ABG PARTIAL PRESSURE O2 60.7 mmHg (75.0-100.0); ABG STANDARD HCO3 23.1 MMOL/L. (22.0-26.0); ABG TOTAL CO2 23.9 MMOL/L (23.0-31.0); ABG pH (ARTERIAL) 7.409 UNITS (7.350-7.450)
[2024-11-25 14:40] LABS: BASO # 0.1 10^3/uL (0.0-0.2); BASO % 0.5 % (0.0-1.0); HEMATOCRIT 37.1 % (42.0-52.0); HEMOGLOBIN 11.5 g/dl (13.5-17.5); LYMPH # 1.1 10^3/uL (1.5-5.0); LYMPH % 10.6 % (24.0-44.0); MEAN CORPUSCULAR HEMOGLOBIN 26.6 pg (27.0-33.0); MEAN CORPUSCULAR VOLUME 85.7 fl (80.0-96.0); MONO # 2.2 10^3/uL (0.0-0.8); MONO % 22.2 % (2.0-8.0); NEUTROPHILS # 6.6 10^3/uL (1.5-8.5); NEUTROPHILS % 65.9 % (36.0-66.0); PLATELET COUNT, AUTOMATED 152 10^3/uL (150-450); RED BLOOD COUNT 4.33 10^6/uL (4.30-6.10)
[2024-11-25 14:57] LABS: INR 1.06; PARTIAL THROMBOPLASTIN TIME 34.1 SECONDS (24.8-34.2); PROTHROMBIN TIME 14.1 SECONDS (12.5-14.5)
[2024-11-25 15:00] LABS: CK-MB VALUE MASS 1.5 NG/ML (<3.6)
[2024-11-25 15:02] LABS: C REACTIVE PROTEIN QUANTITATIV 0.94 MG/DL (<1.0)
[2024-11-25 15:03] LABS: ALBUMIN 3.6 G/DL (3.2-5.2); BILIRUBIN,DIRECT 0.2 MG/DL (<0.4); BILIRUBIN,TOTAL 0.4 MG/DL (0.3-1.2); CALCIUM LEVEL 8.2 MG/DL (8.3-10.6); CREATININE FOR GFR 3.58 MG/DL (0.70-1.30); MB/CK RELATIVE INDEX 1.7 (< OR =4); POTASSIUM SERUM 3.8 MMOL/L (3.5-5.1); TOTAL PROTEIN 7.4 G/DL (5.7-8.2)
[2024-11-25 15:04] LABS: FREE T4 1.11 NG/DL (0.89-1.76)
[2024-11-25 15:05] LABS: THYROID STIMULATING HORMONE 1.606 uIU/ML (0.55-4.78)
[2024-11-25 15:09] LABS: PROCALCITONIN 0.21 ng/ml
[2024-11-25 16:04] LABS: CK-MB VALUE MASS 2.3 NG/ML (<3.6)
[2024-11-25 16:05] LABS: MB/CK RELATIVE INDEX 2.77 (< OR =4)
[2024-11-25] MEDS ORDERED: VITA-158 PO (16:07)
[2024-11-25] MEDS ORDERED: HYDR-3490 PO (16:07)
[2024-11-25] MEDS ORDERED: HOME MED LIST COMPLETE! XX SCH (16:10)
[2024-11-25] MEDS: MONTELUKAST 10 MG TAB PO ONE (16:50)
[2024-11-25 17:20] LABS: KETONE, URINE AUTO RFX NEGATIVE (NEGATIVE); LEUKOCYTE ESTERASE UR AUTO RFX NEGATIVE (NEGATIVE); NITRITE, URINE AUTO RFX NEGATIVE (NEGATIVE); RBC, URINE AUTO RFX 1 /HPF (0-3); SQUAM EPITHELIAL CELL UR AURFX 0 /HPF (0-6); WBC, URINE AUTO RFX 0 /HPF (0-3)
[2024-11-25] MEDS: cefTRIAXone SOD 1 GM in DEXTROSE 5% (D5W) ADV/MINI-BAG 50 ML IV SCH (17:41)
[2024-11-25] MEDS: CETIRIZINE 10 MG TAB PO ONE (17:41)
[2024-11-25 18:19] LABS: CK-MB VALUE MASS 2.5 NG/ML (<3.6)
[2024-11-25] MEDS: amLODIPine 5 MG TAB PO ONE (18:20)
[2024-11-25 18:21] LABS: MB/CK RELATIVE INDEX 2.17 (< OR =4)
[2024-11-25 18:42] VITALS: BP 130/75; TEMP 98.1; O2SAT 93
[2024-11-25 19:50] VITALS: O2SAT 87
[2024-11-25 19:51] VITALS: O2SAT 90
[2024-11-25 19:52] VITALS: O2SAT 90
[2024-11-25 19:59] VITALS: BP 134/74; TEMP 98.1; O2SAT 90
[2024-11-25] MEDS ORDERED: IPRATROPIUM 0.5MG/ALBUTEROL 2.5MG INH SOL UD 3ML NEB SCH (20:00)
[2024-11-25] MEDS: COMBIVENT RESPIMAT 100-20MCG INHALER 4GM INH SCH (20:20)
[2024-11-25] MEDS: COSOPT OCUMETER PLUS 10ML (DORZOLAMIDE/TIMOLOL) OU SCH (20:38)
[2024-11-25] MEDS: guaiFENesin ER TABLET 600 MG TAB PO SCH (20:39)
[2024-11-25] MEDS: PRAVASTATIN 20 MG TAB PO SCH (20:40)
[2024-11-25] MEDS: methylPREDNISolone 125MG 2ML VIAL IV SCH (20:40)
[2024-11-26] VITALS (7 sets, daily range): BP systolic 129–143; BP diastolic 65–71; TEMP 97.5–98.1; O2SAT 83–94
[2024-11-26 06:09] LABS: BASO % 0.1 % (0.0-1.0); HEMATOCRIT 35.7 % (42.0-52.0); HEMOGLOBIN 11.4 g/dl (13.5-17.5); LYMPH # 0.8 10^3/uL (1.5-5.0); LYMPH % 9.1 % (24.0-44.0); MEAN CORPUSCULAR HEMOGLOBIN 26.5 pg (27.0-33.0); MEAN CORPUSCULAR HGB CONC 31.9 g/dl (32.0-36.5); MONO # 0.4 10^3/uL (0.0-0.8); MONO % 4.5 % (2.0-8.0); NEUTROPHILS # 7.9 10^3/uL (1.5-8.5); NEUTROPHILS % 85.8 % (36.0-66.0); PLATELET COUNT, AUTOMATED 136 10^3/uL (150-450); WHITE BLOOD COUNT 9.2 10^3/uL (4.0-10.0)
[2024-11-26 06:35] LABS: CALCIUM LEVEL 7.7 MG/DL (8.3-10.6); CREATININE FOR GFR 2.93 MG/DL (0.70-1.30); GLOMERULAR FILTRATION RATE 20.3 (>35); POTASSIUM SERUM 3.4 MMOL/L (3.5-5.1)
[2024-11-26] MEDS: ASCORBIC ACID 500 MG TAB PO SCH (08:10)
[2024-11-26] MEDS: CETIRIZINE 10 MG TAB PO SCH (08:10)
[2024-11-26] MEDS: MONTELUKAST 10 MG TAB PO SCH (08:10)
[2024-11-26] MEDS: amLODIPine 5 MG TAB PO SCH (08:10)
[2024-11-26] MEDS: PANTOPRAZOLE 20 MG TAB PO SCH (08:11)
[2024-11-26] MEDS: FERROUS SULFATE 325MG TAB PO SCH (08:11)
[2024-11-26] MEDS: HEPARIN SOD (PORCINE) 5000UNITS/ML 1ML VIAL/SYRINGE SQ SCH (08:11)
[2024-11-26] MEDS: VITAMIN D 1,000 INTERNATIONAL UNITS TABLET PO SCH (08:11)
[2024-11-26] MEDS: ASPIRIN 81MG ENTERIC TABLET PO SCH (08:11)
[2024-11-26] MEDS: POTASSIUM CHLORIDE 10MEQ SR TABLET PO ONE (09:11)
[2024-11-26] MEDS: NS (Normal Saline) 0.9% 1,000 ML IV SCH (09:12)
[2024-11-26 12:27] LABS: FREE T4 1.09 NG/DL (0.89-1.76); THYROID STIMULATING HORMONE 0.574 uIU/ML (0.55-4.78)
[2024-11-27 03:09] VITALS: BP 134/68; TEMP 98.1; O2SAT 95
[2024-11-27 06:50] LABS: BASO % 0.1 % (0.0-1.0); HEMOGLOBIN 11.1 g/dl (13.5-17.5); LYMPH % 4.7 % (24.0-44.0); MEAN CORPUSCULAR HEMOGLOBIN 26.8 pg (27.0-33.0); MEAN CORPUSCULAR HGB CONC 31.7 g/dl (32.0-36.5); MEAN CORPUSCULAR VOLUME 84.5 fl (80.0-96.0); MONO % 4.5 % (2.0-8.0); NEUTROPHILS # 19.8 10^3/uL (1.5-8.5); NEUTROPHILS % 89.4 % (36.0-66.0); PLATELET COUNT, AUTOMATED 144 10^3/uL (150-450); RED BLOOD COUNT 4.14 10^6/uL (4.30-6.10); WHITE BLOOD COUNT 22.2 10^3/uL (4.0-10.0)
[2024-11-27 07:03] LABS: CALCIUM LEVEL 7.3 MG/DL (8.3-10.6); CREATININE FOR GFR 2.61 MG/DL (0.70-1.30); GLOMERULAR FILTRATION RATE 23.3 (>35); POTASSIUM SERUM 3.7 MMOL/L (3.5-5.1)
[2024-11-27 12:00] VITALS: BP 133/75; TEMP 97.9; O2SAT 91
[2024-11-27] MEDS: methylPREDNISolone 40MG 1ML VIAL IV SCH (14:51)
[2024-11-27 20:55] VITALS: BP 127/78; TEMP 97.7; O2SAT 93
[2024-11-28] VITALS (9 sets, daily range): BP systolic 128–152; BP diastolic 77–86; TEMP 97.5–98.1; O2SAT 83–95
[2024-11-28 06:30] LABS: HEMATOCRIT 34.7 % (42.0-52.0); HEMOGLOBIN 10.9 g/dl (13.5-17.5); MEAN CORPUSCULAR HEMOGLOBIN 26.5 pg (27.0-33.0); MEAN CORPUSCULAR HGB CONC 31.4 g/dl (32.0-36.5); MEAN CORPUSCULAR VOLUME 84.2 fl (80.0-96.0); PLATELET COUNT, AUTOMATED 145 10^3/uL (150-450); RED BLOOD COUNT 4.12 10^6/uL (4.30-6.10); WHITE BLOOD COUNT 23.3 10^3/uL (4.0-10.0)
[2024-11-28 06:59] LABS: CALCIUM LEVEL 7.4 MG/DL (8.3-10.6); CREATININE FOR GFR 2.52 MG/DL (0.70-1.30); GLOMERULAR FILTRATION RATE 24.3 (>35); POTASSIUM SERUM 3.6 MMOL/L (3.5-5.1)
[2024-11-28 07:28] LABS: LYMPHOCYTES 4 % (16-44); MONOCYTES 2 % (0-5); NEUTROPHILS 81 % (28-66)
[2024-11-28 07:30] LABS: CRENATED RBC 2+; PLATELET ESTIMATE DECREASED (NORMAL)
[2024-11-28 07:32] LABS: ANISOCYTOSIS 1+; POIKILOCYTOSIS 1+
[2024-11-28] MEDS ORDERED: PRIL20TA2 PO (07:41)
[2024-11-28] MEDS ORDERED: PRED10TA2 PO (07:41)
[2024-11-28] MEDS ORDERED: CEFD300C PO (07:41)
[2024-11-28 14:19] LABS: LYME TOTAL ANTIBODY CIA <= 0.90 Index (<=0.90)
== END 2024-11-28 13:59 | disposition home health service (06) | DRG 177 ==
LOC: M ED 13:34 → M ED INP 16:40 → M MSPAV 18:43
PROVIDERS: ADMIT General Practice; ATTEND General Practice
DX: U07.1 COVID-19 (principal); J96.01 Acute respiratory failure with hypoxia; J15.9 Unspecified bacterial pneumonia; N17.9 Acute kidney failure, unspecified; J98.11 Atelectasis; J44.0 Chronic obstructive pulmonary disease with (acute) lower respiratory infection; Z66 Do not resuscitate; N18.32 Chronic kidney disease, stage 3b; I12.9 Hypertensive chronic kidney disease with stage 1 through stage 4 chronic kidney disease, or unspecified chronic kidney disease; I44.0 Atrioventricular block, first degree; I25.10 Atherosclerotic heart disease of native coronary artery without angina pectoris; E78.5 Hyperlipidemia, unspecified; I16.0 Hypertensive urgency; H40.9 Unspecified glaucoma; Z90.49 Acquired absence of other specified parts of digestive tract; Z98.49 Cataract extraction status, unspecified eye; Z87.891 Personal history of nicotine dependence; Z79.82 Long term (current) use of aspirin; Z79.899 Other long term (current) drug therapy; Z95.5 Presence of coronary angioplasty implant and graft; I73.9 Peripheral vascular disease, unspecified; D63.8 Anemia in other chronic diseases classified elsewhere; D50.9 Iron deficiency anemia, unspecified

== ENCOUNTER → 2025-02-04 | Outpatient (REF) | payer MEDICARE ==
[~2025-02-04] MED LIST changes: +CALCTAB89 PO; +CEFD300C PO; +HYDR-3490 PO; +IRON65TA2 PO; -PRAV40TA2 PO; +PRAV40TA85 PO; -PRAV80TA2 PO; +PRAV80TA75 PO; +PRIL20TA2 PO; +VITA-158 PO
[2025-02-04 18:43] LABS: IRON (FE) 165.0 UG/DL (65-175); PERCENT SATURATION 41.7 % (19.7-50.0)
== END ==
LOC: M LAB REF 17:51
PROVIDERS: ATTEND Nurse Practitioner Family
DX: D50.9 Iron deficiency anemia, unspecified (principal)

== ENCOUNTER → 2025-02-12 | Outpatient (CLI) | payer MEDICARE ==
[2025-02-12 12:43] LABS: VITAMIN B12 LEVEL 619.0 PG/ML (211-911)
[2025-02-12 12:44] LABS: TOTAL 25(OH) VITAMIN D 77.6 NG/ML (20.0-100.0)
== END ==
LOC: M WUC 08:18
PROVIDERS: ATTEND Family Medicine
DX: E55.9 Vitamin D deficiency, unspecified (principal); E53.8 Deficiency of other specified B group vitamins; R63.4 Abnormal weight loss